=== PATIENT | female | born 1955 | race Caucasian/White ===

== ENCOUNTER → 2016-04-25 | Outpatient (CLI) | payer BC ==
[2016-04-25 15:54] LABS: MEAN CORPUSCULAR HGB CONC 34.2 g/dL (31.0-37.0); MEAN CORPUSCULAR VOLUME 88 FL (80-100); MEAN PLATELET VOLUME 10.5 FL (6.0-9.5); PLATELET COUNT 304 10^3uL (150-450); WHITE BLOOD COUNT 10.44 10^3uL (4.0-11.0)
[2016-04-25 16:28] LABS: ALBUMIN 4.3 g/dL (3.4-5.0); ANION GAP 15.1 MEQ/L (3-15); CALCULATED IONIZED CALCIUM 4.5 mg/dL (3.8-4.6); MAGNESIUM* 2.1 mg/dL (1.6-2.3); PHOSPHORUS 3.7 mg/dL (2.4-4.9); TOTAL PROTEIN 7.5 g/dL (6.4-8.5)
[2016-04-25 16:43] LABS: BAND NEUTROPHILS % 0 % (0-6); EOSINOPHILS % 1 % (0-4); LYMPHOCYTES # 3.3 #; MONOCYTES # 0.3 #; MONOCYTES % 3 % (3-11); SEGMENTED NEUTROPHILS % 64 % (51-67); TOTAL CELLS COUNTED 100
[2016-04-25 16:44] LABS: RBC MORPH NORMAL (NORMAL)
== END ==
LOC: LAB 15:39
PROVIDERS: ATTEND Internal Medicine Hematology & Oncology
DX: C50.111 Malignant neoplasm of central portion of right female breast (principal)
CPT/HCPCS: 36415; 80053; 83615; 83735; 84100; 85007; 85027; 86300

== ENCOUNTER → 2016-07-25 | Outpatient (CLI) | payer BC ==
[2016-07-25 16:35] LABS: MEAN CORPUSCULAR HEMOGLOBIN 29.7 PG (26.0-34.0); MEAN CORPUSCULAR HGB CONC 32.9 g/dL (31.0-37.0); MEAN CORPUSCULAR VOLUME 90 FL (80-100); MEAN PLATELET VOLUME 10.6 FL (6.0-9.5); PLATELET COUNT 291 10^3uL (150-450); WHITE BLOOD COUNT 7.53 10^3uL (4.0-11.0)
[2016-07-25 16:46] LABS: ALBUMIN 4.4 g/dL (3.4-5.0); ANION GAP 13.6 MEQ/L (3-15); CALCULATED IONIZED CALCIUM 4.6 mg/dL (3.8-4.6); MAGNESIUM* 2.1 mg/dL (1.6-2.3); TOTAL PROTEIN 7.6 g/dL (6.4-8.5)
[2016-07-25 17:29] LABS: BAND NEUTROPHILS % 0 % (0-6); EOSINOPHILS % 3 % (0-4); LYMPHOCYTES # 2.8 #; MONOCYTES # 0.9 #; MONOCYTES % 13 % (3-11); RBC MORPH NORMAL (NORMAL); SEGMENTED NEUTROPHILS % 46 % (51-67); TOTAL CELLS COUNTED 100
== END ==
LOC: LAB 16:24
PROVIDERS: ATTEND Internal Medicine Hematology & Oncology
DX: C50.111 Malignant neoplasm of central portion of right female breast (principal)
CPT/HCPCS: 36415; 80053; 83615; 83735; 84100; 85007; 85027; 86300